=== PATIENT | female | born 1990 | race Caucasian/White ===

== ENCOUNTER 2022-03-29 19:48 | Inpatient (IN) | payer OTHER, MEDICAID ==
[2022-03-29 20:19] VITALS: BMI 27.2
[2022-03-29] MEDS ORDERED: Penicillin G Potassium 5 MILL.UNITS VIAL ONE (21:01)
[2022-03-29] MEDS ORDERED: Ondansetron PF 4 MG/2 ML Vial IVP PRN (21:33)
[2022-03-29] MEDS ORDERED: Lidocaine 1% (PF) 30 ML VIAL SC PRN (21:33)
[2022-03-29] MEDS ORDERED: Promethazine HCl 25 MG/ML VIAL IM PRN (21:33)
[2022-03-29] MEDS ORDERED: hydrALAZINE 20 MG/ML VIAL SLOW IVP PRN (21:33)
[2022-03-29] MEDS ORDERED: NS w/ Oxytocin 30 units 500 ML IV SCH (21:45)
[2022-03-29] MEDS ORDERED: Lactated Ringer's 1,000 ML IV SCH (21:45)
[2022-03-29] MEDS ORDERED: Penicillin G Potassium 5 MILL.UNITS in Sodium Chloride 0.9% 100 ML IVPB SCH (21:45)
[2022-03-29 21:53] LABS: Hemoglobin 13.8 g/dL (12.0-15.5); Mean Corpuscular HGB CONC 33.3 g/dL (32.0-36.0); Mean Corpuscular Hemoglobin 26.1 pg (27.0-33.0); Mean Corpuscular Volume 78.4 fl (81.6-98.3); Platelet Count 169 10x3/uL (150-450); RBC Distribution Width 19.4 % (11.5-14.5); Red Blood Cell (RBC) Count 5.29 10x6/uL (3.90-5.03); White Blood Cell (WBC) Count 13.4 10x3/uL (3.5-10.5)
[2022-03-29 22:22] LABS: Hep B Surf Ag Non-Reactive S/CO (NonReactive); Syphilis Antibody Nonreactive (Nonreactive); Syphilis Antibody Index 0.02 S/CO (<1.00 Non-Reactive)
[2022-03-29 22:32] LABS: HBSAg Index 0.15 S/CO (0-0.99)
[2022-03-29 22:48] LABS: SARS-CoV-2 NAA Rapid Test Not Detected (NotDetected)
[2022-03-30] MEDS ORDERED: Penicillin G 2.5 MILL.units 2.5 MILL.UNITS in Premix Bag 1 BAG IVPB SCH (01:00)
[2022-03-30] MEDS ORDERED: Bisacodyl 10 MG SUPP PR PRN (02:01)
[2022-03-30] MEDS ORDERED: hydrALAZINE 20 MG/ML VIAL SLOW IVP PRN (02:01)
[2022-03-30] MEDS ORDERED: Boostrix 0.5 ML (Tdap) VIAL IM ONE (02:01)
[2022-03-30] MEDS ORDERED: Ondansetron PF 4 MG/2 ML Vial IVP PRN (02:01)
[2022-03-30] MEDS ORDERED: Milk Of Magnesia 30 ML UDCUP PO PRN (02:01)
[2022-03-30] MEDS: Ibuprofen 800 MG TAB PO PRN ×3 (03:56→21:37)
[2022-03-30] MEDS: Ferrous Sulfate 325 MG TAB PO SCH ×2 (08:14→15:13)
[2022-03-30] MEDS: Docusate 100 MG CAP PO SCH ×2 (08:45→21:37)
[2022-03-31 04:35] VITALS: BP 92/54; TEMP 97.6
[2022-03-31] MEDS: Ibuprofen 800 MG TAB PO PRN (05:51)
[2022-03-31] MEDS: Ferrous Sulfate 325 MG TAB PO SCH (08:39)
[2022-03-31] MEDS: Docusate 100 MG CAP PO SCH (08:40)
== END 2022-03-31 12:30 | disposition home or self-care (01) | DRG 806 ==
LOC: CSHLD/OP 19:48 → CSHLD 20:57 → CSHPP 03-30 04:15
PROVIDERS: ADMIT Family Medicine; ATTEND Family Medicine
PROC: 10E0XZZ Delivery of Products of Conception, External Approach (ICD-10-PCS; principal; 2022-03-30)
PROC: 10907ZC Drainage of Amniotic Fluid, Therapeutic from Products of Conception, Via Natural or Artificial Opening (ICD-10-PCS; 2022-03-30)
DX: O99.02 Anemia complicating childbirth (principal); O99.43 Diseases of the circulatory system complicating the puerperium; Z37.0 Single live birth; D64.9 Anemia, unspecified; Z3A.40 40 weeks gestation of pregnancy; O99.824 Streptococcus B carrier state complicating childbirth; Z20.822 Contact with and (suspected) exposure to COVID-19; Z79.899 Other long term (current) drug therapy; O70.0 First degree perineal laceration during delivery; O69.81X0 Labor and delivery complicated by cord around neck, without compression, not applicable or unspecified; I95.9 Hypotension, unspecified
CPT/HCPCS: 85027; 86780; 86850; 86900; 86901; 87340; 99285; J2540; J2590; U0002

== ENCOUNTER 2025-08-04 10:56 | Day surgery (SDC) | payer BC, OTHER ==
[2025-08-04 11:44] VITALS: BMI 28.9
[2025-08-04] MEDS ORDERED: diphenhydrAMINE 50 MG/ML VIAL IVP SCH (12:18)
[2025-08-04] MEDS ORDERED: Metoclopramide HCl 10 MG (2 mL) VIAL IVP SCH (12:19)
== END 2025-08-04 14:00 | disposition home or self-care (01) ==
LOC: CSHLD/OP 10:56
PROVIDERS: ATTEND Emergency Medicine
DX: O99.891 Other specified diseases and conditions complicating pregnancy (principal); R51.9 Headache, unspecified; O09.523 Supervision of elderly multigravida, third trimester; O21.2 Late vomiting of pregnancy; Z3A.32 32 weeks gestation of pregnancy; Z67.40 Type O blood, Rh positive; Z79.899 Other long term (current) drug therapy
CPT/HCPCS: 99283; J1200; J2765

== ENCOUNTER 2025-09-27 19:00 | Inpatient (IN) | payer BC, OTHER ==
[2025-09-27 22:29] VITALS: BMI 26.9
[2025-09-27] MEDS ORDERED: Ondansetron PF 4 MG/2 ML Vial IVP PRN (22:47)
[2025-09-27] MEDS ORDERED: hydrALAZINE 20 MG/ML VIAL SLOW IVP PRN (22:47)
[2025-09-27] MEDS ORDERED: Tranexamic Acid 1,000 MG/10 ML VIAL IVP PRN (22:48)
[2025-09-27] MEDS ORDERED: Methylergonovine 0.2 MG/ML VIAL IM PRN (22:48)
[2025-09-27] MEDS ORDERED: Diphenoxylate HCl/Atropine Tablet PO PRN (22:48)
[2025-09-27] MEDS ORDERED: Carboprost 250 MCG/ML AMP IM PRN (22:48)
[2025-09-27] MEDS ORDERED: Acetaminophen 500 MG TAB PO PRN (22:48)
[2025-09-27] MEDS ORDERED: Oxytocin 30 units/NS 500 ML 500 ML IV SCH (23:00)
[2025-09-27 23:04] LABS: Hematocrit 39.6 % (34.9-44.5); Hemoglobin 13.2 g/dL (12.0-15.5); Mean Corpuscular Hemoglobin 28.7 pg (27.0-33.0); Mean Corpuscular Volume 86.1 fL (81.6-98.3); Platelet Count 124 10x3/uL (150-450); Red Blood Cell (RBC) Count 4.60 10x6/uL (3.90-5.03); White Blood Cell (WBC) Count 6.94 10x3/uL (3.5-10.5)
[2025-09-27 23:37] LABS: Syphilis Antibody Index 0.02 S/CO (<1.00 Non-Reactive)
[2025-09-27 23:38] LABS: Hep B Surf Ag - L&D Non-Reactive S/CO (NonReactive)
[2025-09-28] MEDS: Oxytocin 30 units/NS 500 ML 500 ML IV SCH (08:10)
[2025-09-28] MEDS: Lidocaine 1% (PF) 30 ML VIAL SC PRN (08:40)
[2025-09-28] MEDS: Ibuprofen 800 MG TAB PO PRN (10:32)
[2025-09-28] MEDS ORDERED: Preparation H Ointment 28 GM TUBE PR PRN (11:13)
[2025-09-28] MEDS ORDERED: Benzocaine-Menthol 82.5 ML CAN TOP PRN (11:13)
[2025-09-28] MEDS ORDERED: hydrALAZINE 20 MG/ML VIAL SLOW IVP PRN (11:13)
[2025-09-28] MEDS ORDERED: Ondansetron PF 4 MG/2 ML Vial IVP PRN (11:13)
[2025-09-28] MEDS ORDERED: Milk Of Magnesia 30 ML UDCUP PO PRN (11:13)
[2025-09-28] MEDS ORDERED: Oxytocin 30 units/NS 500 ML 500 ML IV SCH (11:13)
[2025-09-28] MEDS ORDERED: diphenhydrAMINE 25 MG CAP PO PRN (11:13)
[2025-09-28] MEDS ORDERED: Methylergonovine 0.2 MG/ML VIAL IM PRN (11:13)
[2025-09-28] MEDS ORDERED: Lanolin Ointment 7 GM TUBE TOP PRN (11:13)
[2025-09-28] MEDS ORDERED: Bisacodyl 10 MG SUPP PR PRN (11:13)
[2025-09-28] MEDS: Ferrous Sulfate 325 MG TAB PO SCH (16:26)
[2025-09-28] MEDS: Ibuprofen 800 MG TAB PO SCH (18:23)
[2025-09-29 08:23] VITALS: BP 112/65; TEMP 97.8
== END 2025-09-29 15:30 | disposition home or self-care (01) | DRG 807 ==
LOC: CSHLD 22:02 → CSHPED 09-28 10:31
PROVIDERS: ADMIT Family Medicine; ATTEND Family Medicine
PROC: 10E0XZZ Delivery of Products of Conception, External Approach (ICD-10-PCS; principal; 2025-09-28)
PROC: 0KQM0ZZ Repair Perineum Muscle, Open Approach (ICD-10-PCS; 2025-09-28)
PROC: 4A1HXCZ Monitoring of Products of Conception, Cardiac Rate, External Approach (ICD-10-PCS; 2025-09-28)
PROC: 10907ZC Drainage of Amniotic Fluid, Therapeutic from Products of Conception, Via Natural or Artificial Opening (ICD-10-PCS; 2025-09-28)
PROC: 3E033VJ Introduction of Other Hormone into Peripheral Vein, Percutaneous Approach (ICD-10-PCS; 2025-09-28)
DX: O48.0 Post-term pregnancy (principal); Z37.0 Single live birth; Z3A.40 40 weeks gestation of pregnancy; O70.1 Second degree perineal laceration during delivery
CPT/HCPCS: 36415; 51701; 85027; 86780; 86850; 86900; 86901; 87340; J0595; J2003; J2590